=== PATIENT | male | born 2000 | race Caucasian/White ===

== ENCOUNTER 2019-03-14 17:21 | Emergency (ER) | payer BC ==
[~2019-03-14] VITALS: Ht 177.8 cm; Wt 80.5 kg
[2019-03-14] MEDS ORDERED: IV NORMAL SALINE 1,000ML 1,000 ML IV SCH (18:04)
--- NOTE | 2019-03-14 18:08 | PHYS DOC ---
Past History Past Medical History: No Pertinent History Past Surgical History: No Surgical History Smoking: Quit Greater Than 1 Year Alcohol Use: Rarely Drug Use: None Adult General Chief Complaint Chief Complaint: CHEST PAIN HPI HPI Patient is a 19-year-old male presents with chest discomfort and difficulty breathing and cough. This is been going on intermittently for "a while" but became worse over the past 90 minutes. Nonproductive cough. No fever. No travel. No worsening with change of position or exertion. Patient reports that his chest discomfort is sharp in nature. No radiation. No nausea or vomiting. No diaphoresis. Worse with deep breaths. There has been no leg swelling. Symptoms are moderate in intensity.[] Review of Systems Review of Systems Constitutional: Denies fever or chills [] Eyes: Denies change in visual acuity, redness, or eye pain [] HENT: Denies nasal congestion or sore throat [] Respiratory: Denies cough or shortness of breath [] Cardiovascular: No additional information not addressed in HPI [] GI: Denies abdominal pain, nausea, vomiting, bloody stools or diarrhea [] : Denies dysuria or hematuria [] Musculoskeletal: Denies back pain or joint pain [] Integument: Denies rash or skin lesions [] Neurologic: Denies headache, focal weakness or sensory changes [] Endocrine: Denies polyuria or polydipsia [] All other systems were reviewed and found to be within normal limits, except as documented in this note. Physical Exam Physical Exam Constitutional: Well developed, well nourished, no acute distress, non-toxic appearance. [] HENT: Normocephalic, atraumatic, bilateral external ears normal, oropharynx moist, no oral exudates, nose normal. [] Eyes: PERRLA, EOMI, conjunctiva normal, no discharge. [] Neck: Normal range of motion, no tenderness, supple, no stridor. [] Cardiovascular:Heart rate regular rhythm, no murmur [] Lungs & Thorax: Bilateral breath sounds clear to auscultation [] Abdomen: Bowel sounds normal, soft, no tenderness, no masses, no pulsatile masses. [] Skin: Warm, dry, no erythema, no rash. [] Back: No tenderness, no CVA tenderness. [] Extremities: No tenderness, no cyanosis, no clubbing, ROM intact, no edema. [] Neurologic: Alert and oriented X 3, normal motor function, normal sensory function, no focal deficits noted. [] Psychologic: Affect normal, judgement normal, mood normal. [] Current Patient Data Vital Signs Vital Signs Date Time Temp Pulse Resp B/P (MAP) Pulse Ox O2 Delivery O2 Flow Rate FiO2 03/14/19 17:32 98.2 80 16 99 Room Air EKG EKG EKG shows a sinus rhythm at 81 bpm, normal axis, normal QTC at 386 ms, incomplete right bundle branch block. No ST elevations. Interpreted at 1809[] Radiology/Procedures Radiology/Procedures PROCEDURE: CHEST PA & LATERAL Two-view chest dated 03/14/2019. No comparison available. Clinical data indication: Chest pain. FINDINGS: PA and lateral views obtained. Heart and mediastinal contours within normal limits. Lungs are somewhat hyperinflated but otherwise clear. No consolidation or pleural effusion. No pneumothorax. IMPRESSION:. No acute radiographic abnormality. [] Course & Med Decision Making Course & Med Decision Making Pertinent Labs and Imaging studies reviewed. (See chart for details) ED course: Patient arrived, was placed in bed, and tolerated exam well. He was given a breathing treatment which improved his cough, and his heart rate improved after the breathing treatment. He was feeling better afterwards. There was no significant change in breath sounds after the breathing treatment. He was transported to and from radiology with any complications. After the return of lab and imaging findings, these were discussed with the patient and his family voiced understanding. All questions were answered. Patient was discharged in improved condition. Danii decision making: Patient appears to have a bronchitis type of picture. There is no evidence of an acute coronary syndrome, pneumonia, pneumothorax, pulmonary embolism, dissecting thoracic aortic aneurysm, nor esophageal rupture. No evidence of hypoxia.[] Dragon Disclaimer Dragon Disclaimer This electronic medical record was generated, in whole or in part, using a voice recognition dictation system. Departure Departure: Impression: Primary Impression: Acute bronchitis Disposition: 01 HOME, SELF-CARE Condition: IMPROVED Referrals: PCPANTOLIN (PCP) Patient Instructions: Acute Bronchitis Additional Instructions: Follow-up with your regular doctor in 2 days. If you do not have regular doctor list of local clinics will be provided. Drink plenty of fluids. Take the medication as prescribed. Return to the ER if worsening chest discomfort, difficulty breathing, or any other concerns. Scripts D-Methorphan Hb/Prometh Hcl (PROMETHAZINE-DM SYRUP) 118 Ml Syrup 5 ML PO PRN Q4HRS for CONGESTION, #120 ML Prov: ANGELA ADAMS DO 03/14/19 Meloxicam (MELOXICAM) 7.5 Mg Tablet 7.5 MG PO DAILY for PAIN, #20 TAB Prov: ANGELA ADAMS DO 03/14/19 Albuterol Sulfate (VENTOLIN HFA INHALER) 18 Gm Hfa.aer.ad 2 PUFF IH PRN Q4HRS PRN for COUGH, #1 INHALER 0 Refills Prov: ANGELA ADAMS DO 03/14/19 Problem Qualifiers Primary Impression: Acute bronchitis Bronchitis organism: unspecified organism Qualified Codes: J20.9 - Acute b ronchitis, unspecified ANGELA ADAMS DO Mar 14, 2019 18:08
--- NOTE | 2019-03-14 18:11 | EKG ---
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
[2019-03-14] MEDS ORDERED: KETOROLAC 15 MG/ML VIAL. IV ONE (18:15)
[2019-03-14] MEDS ORDERED: IPRATRPIUM/ALBUTEROL 0.5/2.5MG 3 ML NEBU. NEB ONE (18:15)
--- NOTE | 2019-03-14 18:23 | RAD ---
Two-view chest dated 03/14/2019. No comparison available. Clinical data indication: Chest pain. FINDINGS: PA and lateral views obtained. Heart and mediastinal contours within normal limits. Lungs are somewhat hyperinflated but otherwise clear. No consolidation or pleural effusion. No pneumothorax. IMPRESSION:. No acute radiographic abnormality. Electronically signed by: Cj Mancini MD (03/14/2019 6:20 PM) [facility]
[2019-03-14 18:55] LABS: BASO % 0 % (0-3); EOS % 0 % (0-3); HEMATOCRIT 46.6 % (39.0-53.0); HEMOGLOBIN 15.4 g/dL (13.0-17.5); LYMPH # 2.1 x10^3/uL (1.0-4.8); LYMPH % 21 % (24-48); MEAN CORPUSCULAR HEMOGLOBIN 32 pg (25-35); MEAN CORPUSCULAR HGB CONC 33 g/dL (31-37); MEAN CORPUSCULAR VOLUME 96 fL (79-100); MONO # 0.5 x10^3/uL (0.0-1.1); MONO % 5 % (0-9); NEUT # 7.1 x10^3uL (1.8-7.7); NEUT % 73 % (31-73); PLATELET COUNT 248 x10^3/uL (140-400); RED BLOOD COUNT 4.86 x10^6/uL (4.30-5.70); RED CELL DISTRIBUTION WIDTH 12.9 % (11.5-14.5); WHITE BLOOD COUNT 9.8 x10^3/uL (4.0-11.0)
[2019-03-14] MEDS ORDERED: IPRATRPIUM/ALBUTEROL 0.5/2.5MG 3 ML NEBU. ONE (18:57)
[2019-03-14 19:19] LABS: ALBUMIN 4.5 g/dL (3.4-5.0); ALBUMIN/GLOBULIN RATIO 1.2 (1.0-1.7); CALCIUM 9.3 mg/dL (8.5-10.1); GFR 94.3; MAGNESIUM 2.1 mg/dL (1.8-2.4); POTASSIUM 3.8 mmol/L (3.5-5.1); TOTAL BILIRUBIN 0.6 mg/dL (0.2-1.0); TOTAL PROTEIN 8.2 g/dL (6.4-8.2)
[2019-03-14] MEDS ORDERED: PROM118S9 PO (19:33)
[2019-03-14] MEDS ORDERED: ALBU2.5V8 IH (19:33)
[2019-03-14] MEDS ORDERED: MELO7.5T29 PO (19:33)
[2019-03-14 19:40] VITALS: BP 126/74
== END 2019-03-14 19:40 | disposition home or self-care (01) ==
LOC: ER 17:21
DX: J20.9 Acute bronchitis, unspecified (principal); Z87.891 Personal history of nicotine dependence
CPT/HCPCS: 36415; 71046; 80053; 83735; 83880; 84484; 85025; 85379; 93005; 94640; 99285; J7620

== ENCOUNTER 2019-06-05 07:38 | Emergency (ER) | payer SELFPAY ==
[~2019-06-05] VITALS: Ht 177.8 cm; Wt 180.0 kg
[~2019-06-05 07:38] MED LIST: ALBU2.5V8 IH; MELO7.5T29 PO; PROM118S9 PO
[2019-06-05 07:52] VITALS: BP 113/77
--- NOTE | 2019-06-05 08:06 | PHYS DOC ---
Past History Past Medical History: No Pertinent History Past Surgical History: No Surgical History Smoking: Quit Greater Than 1 Year Alcohol Use: Rarely Drug Use: None Adult General Chief Complaint Chief Complaint: FEVER HPI HPI Patient is a 19-year-old male who presents to the emergency department for evaluation. He states that since Sunday night, he has had myalgias, nasal congestion, a nonproductive cough, as well as a sensation of his years being stopped up. He has had low-grade fevers, but has not taken any antipyretics in the past 36 hours for his symptoms. He denies any shortness of breath, vision changes, numbness, or weakness. He admits to a mild headache. He has not had any nausea vomiting or diarrhea. There are no alleviating or exacerbating factors to his symptoms. He denies a sore throat. Review of Systems Review of Systems Constitutional: Denies fever or chills [] Eyes: Denies change in visual acuity, redness, or eye pain [] HENT: Denies otalgia or sore throat [] Respiratory: Denies shortness of breath [] Cardiovascular: The patient denies any shortness of breath, chest pain, palpitations, or orthopnea [] GI: Denies abdominal pain, nausea, vomiting, bloody stools or diarrhea [] : Denies dysuria or hematuria [] Musculoskeletal: Denies back pain or joint pain. Reports myalgias. [] Integument: Denies rash or skin lesions [] Neurologic: Denies focal weakness or sensory changes [] Endocrine: Denies polyuria or polydipsia [] All other systems were reviewed and found to be within normal limits, except as documented in this note. Physical Exam Physical Exam PHYSICAL EXAM: CONSTITUTIONAL: Well developed, well nourished, well-appearing, nontoxic- appearing HEAD: normocephalic, atraumatic EENT: PERRL, EOMI. Conjunctivae normal color, sclerae non-icteric; moist mucous membranes. Tympanic membranes are normal bilaterally. The oropharynx is nonerythematous. NECK: Supple, non-tender; no meningismus. LUNGS: Lungs CTA, breathing even and unlabored. Normal air movement. HEART: Regular rate and rhythm, no murmur CHEST: No deformity; non-tender ABDOMEN: The abdomen is soft, and non-tender, no masses or bruits. EXTREM: Normal ROM; no deformity, no calf tenderness. Normal pulses palpable in all extremities. There is no pedal edema. SKIN: No rash; no diaphoresis NEURO: Alert; normal speech and cognition; CN's grossly intact; strength grossly intact without focal deficit. BACK: No CVA TTP. EKG EKG [] Radiology/Procedures Radiology/Procedures [] Course & Med Decision Making Course & Med Decision Making Influenza B-positive. Patient remains stable. I discussed test results, the need for close follow-up, and return precautions. Dragon Disclaimer Dragon Disclaimer This electronic medical record was generated, in whole or in part, using a voice recognition dictation system. Departure Departure: Impression: Primary Impression: Influenza B Disposition: 01 HOME, SELF-CARE Condition: STABLE Patient Instructions: Influenza, Adult Scripts Oseltamivir Phosphate (TAMIFLU) 75 Mg Capsule 1 CAP PO BID for -, #10 CAP Prov: ADALI ALLEN MD 06/05/19 ADALI ALLEN MD Jun 05, 2019 08:06
[2019-06-05] MEDS ORDERED: ACETAMINOPHEN 500 MG TABLET PO ONE (08:15)
[2019-06-05 08:37] LABS: INFLUENZA A PATIENT NEGATIVE (NEGATIVE); INFLUENZA B PATIENT POSITIVE (NEGATIVE)
[2019-06-05] MEDS ORDERED: OSEL75CA PO (09:08)
== END 2019-06-05 09:15 | disposition home or self-care (01) ==
LOC: ER 07:38
DX: J10.1 Influenza due to other identified influenza virus with other respiratory manifestations (principal); Z87.891 Personal history of nicotine dependence
CPT/HCPCS: 87804; 99284

== ENCOUNTER 2019-10-29 22:41 | Emergency (ER) | payer OTHER ==
[~2019-10-29] VITALS: Ht 180.3 cm; Wt 100.0 kg
[~2019-10-29 22:41] MED LIST changes: +OSEL75CA PO; +PROM118S10 PO; -PROM118S9 PO
[2019-10-29 22:45] VITALS: BP 142/79
[2019-10-29] MEDS ORDERED: ONDA4TAB12 PO (23:07)
--- NOTE | 2019-10-29 23:07 | PHYS DOC ---
Past History Past Medical History: Other Additional Past Medical Histor: kidney failure Past Surgical History: Other Additional Past Surgical Histo: EYE, CYST REMOVED FROM HIP Smoking: Quit Greater Than 1 Year Alcohol Use: Rarely Drug Use: None General Adult EDM: Chief Complaint: NAUSEA/VOMITING/DIARRHEA HPI: HPI: Patient is a [age] year old [sex] who presents with [] Review of Systems: Review of Systems: Constitutional: Denies fever or chills Eyes: Denies redness or eye pain HENT: Denies nasal congestion or sore throat Respiratory: Denies cough or shortness of breath Cardiovascular: Denies chest pain or palpitations GI: Denies abdominal pain, nausea, or vomiting : Denies dysuria or hematuria Musculoskeletal: Denies back pain or joint pain Integument: Denies rash or skin lesions Neurologic: Denies headache, focal weakness or sensory changes Complete systems were reviewed and found to be within normal limits, except as documented in this note. Allergies: Allergies: Allergies Coded Allergies Type Severity Reaction Last Updated Verified No Known Drug Allergies 06/05/19 No Physical Exam: PE: Constitutional: Well developed, well nourished, no acute distress, non-toxic appearance HENT: Normocephalic, atraumatic, oropharynx moist Eyes: PERRL, EOMI, conjunctiva normal, no discharge Neck: Normal range of motion, no tenderness, supple Cardiovascular: Heart rate normal, regular rhythm Lungs & Thorax: Bilateral breath sounds clear to auscultation, no wheezing Abdomen: Soft, no tenderness Skin: Warm, dry, no erythema, no rash Back: No tenderness, no CVA tenderness Extremities: No tenderness, ROM intact, no edema Neurologic: Alert and oriented X 3, normal motor function, normal sensory function, no focal deficits noted Psychologic: Affect normal, judgment normal Current Patient Data: Vital Signs: Vital Signs Date Time Temp Pulse Resp B/P (MAP) Pulse Ox O2 Delivery O2 Flow Rate FiO2 10/29/19 22:45 97.9 77 18 142/79 (100) 98 Room Air EKG: EKG: [] Radiology/Procedures: Radiology/Procedures: [] Course & Med Decision Making: Course & Med Decision Making Pertinent Imaging studies reviewed. (See chart for details) Patient stable for discharge with outpatient follow-up with PCP. Discussed findings and plan with patient, who acknowledges understanding and agreement. Ami Disclaimer: Ami Disclaimer: This electronic medical record was generated, in whole or in part, using a voice recognition dictation system. Departure Departure: Impression: Primary Impression: Nausea Disposition: 01 HOME/RESIDENCE PRIOR TO ADM Condition: STABLE Referrals: PCP,NO (PCP) Patient Instructions: Clear Liquid Diet, [id number], Nausea, Adult, Eyqy-rh-Yalm Scripts Ondansetron (ONDANSETRON ODT) 4 Mg Tab.rapdis 1 TAB PO PRN Q6-8HRS PRN for NAUSEA, #16 TAB Prov: ASHLEY LYNCH DO 10/29/19 Justification of Admission: Justification of Admission: Justification of Admission Dx: N/A ASHLEY LYNCH DO Oct 29, 2019 23:07
[2019-10-29] MEDS ORDERED: ONDANSETRON ODT 4 MG TAB.RAPDIS PO ONE (23:15)
[2019-10-29] MEDS ORDERED: ONDANSETRON ODT 4 MG TAB.RAPDIS ONE (23:23)
== END 2019-10-29 23:25 | disposition home or self-care (01) ==
LOC: ER 22:41
DX: R11.0 Nausea (principal); Z87.891 Personal history of nicotine dependence
CPT/HCPCS: 99283; Q0162

== ENCOUNTER 2020-02-21 22:25 | Emergency (ER) | payer BC, OTHER ==
[~2020-02-21] VITALS: Ht 180.3 cm; Wt 92.0 kg
[~2020-02-21 22:25] MED LIST changes: +ONDA4TAB12 PO
[2020-02-21 22:30] VITALS: BP 115/79
[2020-02-21] MEDS ORDERED: TRIA15CR50 TP (23:17)
--- NOTE | 2020-02-21 23:17 | PHYS DOC ---
Past History Past Medical History: Renal Failure, Other Additional Past Medical Histor: kidney failure -age 13-16; cyst on rt hip Past Surgical History: Other Additional Past Surgical Histo: EYE, CYST REMOVED FROM HIP Smoking: Quit Greater Than 1 Year Alcohol Use: Occasionally Drug Use: None Social History Narrative: used to smoke marijuana but has not for 4-5 yrs General Adult EDM: Chief Complaint: SKIN RASH/ABSCESS HPI: HPI: 20-year-old male presents with bilateral palmar rash. He has had off-and-on problems with this for couple months. Over the last few days it is gotten worse and been persistent. It is intensely pruritic. There are some mild erythematous areas mostly on the palms with a couple scattered dots on the wrist. 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 He does not have any known allergies. He has tried antifungal cream at home without relief. He has not tried any steroids. He does not have a family doctor at this time. Review of Systems: Review of Systems: Constitutional: Denies fever or chills Eyes: Denies change in visual acuity HENT: Denies nasal congestion or sore throat Respiratory: Denies cough or shortness of breath Cardiovascular: Denies chest pain or edema GI: Denies abdominal pain, nausea, vomiting, bloody stools or diarrhea : Denies dysuria Musculoskeletal: Denies back pain or joint pain Integument: Rash of hands Neurologic: Denies headache, focal weakness or sensory changes Endocrine: Denies polyuria or polydipsia Lymphatic: Denies swollen glands Psychiatric: Denies depression or anxiety Heart Score: Risk Factors: Risk Factors: DM, Current or recent (<one month) smoker, HTN, HLP, family history of CAD, obesity. Risk Scores: Score 0 - 3: 2.5% MACE over next 6 weeks - Discharge Home Score 4 - 6: 20.3% MACE over next 6 weeks - Admit for Clinical Observation Score 7 - 10: 72.7% MACE over next 6 weeks - Early Invasive Strategies Allergies: Allergies: Allergies Coded Allergies Type Severity Reaction Last Updated Verified No Known Drug Allergies 02/21/20 No Physical Exam: PE: Constitutional: Well developed, well nourished, no acute distress, non-toxic appearance. [] HENT: Normocephalic, atraumatic, bilateral external ears normal, oropharynx moist, no oral exudates, nose normal. [] Eyes: PERRLA, EOMI, conjunctiva normal, no discharge. [] Neck: Normal range of motion, no tenderness, supple, no stridor. [] Cardiovascular:Heart rate regular rhythm, no murmur [] Lungs & Thorax: Bilateral breath sounds clear to auscultation [] Abdomen: Bowel sounds normal, soft, no tenderness, no masses, no pulsatile masses. [] Skin: Mildly erythematous patches on the bilateral palms with scattered papules on the bilateral wrists. [] Back: No tenderness, no CVA tenderness. [] Extremities: No tenderness, no cyanosis, no clubbing, ROM intact, no edema. [] Neurologic: Alert and oriented X 3, normal motor function, normal sensory function, no focal deficits noted. [] Psychologic: Affect normal, judgement normal, mood normal. [] Current Patient Data: Vital Signs: Vital Signs Date Time Temp Pulse Resp B/P (MAP) Pulse Ox O2 Delivery O2 Flow Rate FiO2 02/21/20 22:30 98.1 71 16 115/79 (91) 98 Room Air EKG: EKG: [] Radiology/Procedures: Radiology/Procedures: [] Course & Med Decision Making: Course & Med Decision Making Pertinent Labs and Imaging studies reviewed. (See chart for details) Not sure what is causing the patient's rash. He could be allergic to latex or the powder and then powdered gloves. He uses all different types of bras where he works. He has tried an antifungal without relief so that seems unlikely. I will try triamcinolone cream at home. I have also encouraged him to just use nitrile based close and see if his condition improves. He will establish with a primary care physician. He is stable for discharge at this time. [] Dragon Disclaimer: Dragyudi Disclaimer: This electronic medical record was generated, in whole or in part, using a voice recognition dictation system. Departure Departure: Impression: Primary Impression: Rash of both hands Disposition: 01 DC HOME SELF CARE/HOMELESS Condition: STABLE Referrals: PCP,NO (PCP) Patient Instructions: Rash, Drip-gr-Paye Scripts Triamcinolone Acetonide (TRIAMCINOLONE ACETONIDE 0.5% CREAM) 15 Gm Cream..g. 1 MAUREEN TP BID for rash for 7 Days, #30 GM Prov: MARKY FIELD DO 02/21/20 MARKY FIELD DO Feb 21, 2020 23:17
== END 2020-02-21 23:26 | disposition home or self-care (01) ==
LOC: ER 22:25
DX: R21 Rash and other nonspecific skin eruption (principal); L29.9 Pruritus, unspecified; L53.8 Other specified erythematous conditions; N19 Unspecified kidney failure; Z87.891 Personal history of nicotine dependence
CPT/HCPCS: 99283

== ENCOUNTER 2020-02-28 16:42 | Emergency (ER) | payer BC ==
[~2020-02-28] VITALS: Ht 180.3 cm; Wt 95.5 kg
[~2020-02-28 16:42] MED LIST changes: +TRIA15CR50 TP
--- NOTE | 2020-02-28 17:18 | PHYS DOC ---
Past History Past Medical History: Renal Failure, Other Additional Past Medical Histor: kidney failure -age [age]; cyst on rt hip Past Surgical History: Other Additional Past Surgical Histo: EYE, CYST REMOVED FROM HIP Smoking: Quit Greater Than 1 Year Alcohol Use: Occasionally Drug Use: None Adult General Chief Complaint Chief Complaint: NAUSEA/VOMITING/DIARRHEA HPI HPI Patient is a healthy 20-year-old male who presents needing COVID-19 swab. Patient reports working at local [employer] [facility] [employer] that has multiple known COVID-19 contacts. 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 Patient reports x48 hours of generalized URI-like symptoms, nausea with x2 episodes of nonbloody nonbilious vomit today. Patient brought daughter in for evaluation to our ER yesterday. Today, patient did not feel well prior to work and so, patient was advised from his work to seek evaluation at our ER and received COVID-19 swab. He has been afebrile, vaccines are up-to-date Review of Systems Review of Systems Fourteen body systems of review of systems have been reviewed. See HPI for pertinent positives and negative responses, other gonzalez all other systems are negative, non-pertinent or non-contributory Allergies Allergies Allergies Coded Allergies Type Severity Reaction Last Updated Verified No Known Drug Allergies 02/21/20 No Physical Exam Physical Exam Constitutional: Well developed, well nourished, no acute distress, non-toxic appearance. HENT: Normocephalic, atraumatic, bilateral external ears normal, oropharynx moist, no oral exudates, nose normal. Eyes: PERRLA, EOMI, conjunctiva normal, no discharge. Neck: Normal range of motion, no tenderness, supple, no stridor. Cardiovascular: Heart rate regular, sinus rhythm, no murmurs rubs or gallops Lungs & Thorax: Bilateral breath sounds clear to auscultation Abdomen: Bowel sounds normal, soft, no tenderness, no masses, no pulsatile masses. Nonsurgical abdomen, no peritoneal signs Skin: Warm, dry, no erythema, no rash. Back: No tenderness, no CVA tenderness. Extremities: No tenderness, no cyanosis, no clubbing, ROM intact, no edema. Neurologic: Alert and oriented X 3, grossly normal motor & sensory function, no focal deficits noted. Psychologic: Affect normal, judgement normal, mood normal. Current Patient Data Vital Signs Vital Signs Date Time Temp Pulse Resp B/P (MAP) Pulse Ox O2 Delivery O2 Flow Rate FiO2 02/28/20 17:37 97.8 69 18 125/90 (102) 98 EKG EKG [] Radiology/Procedures Radiology/Procedures [] Heart Score Risk Factors: Risk Factors: DM, Current or recent (<one month) smoker, HTN, HLP, family history of CAD, obesity. Risk Scores: Risk Factors: DM, Current or recent (<one month) smoker, HTN, HLP, family history of CAD, obesity. Course & Med Decision Making Course & Med Decision Making Pertinent Labs and Imaging studies reviewed. (See chart for details) Discussed most likely diagnosis of nausea and vomit versus COVID-19 versus other Patient swabbed for COVID-19 per patient and employer request I discussed utility of lab work and other work-up modalities in ER setting but g iven that patient is well-appearing, hemodynamically stable and tolerating p.o. intake, I feel this is inappropriate at present. Patient agreed with this as well I did disclose this might be an acute presentation more concerning pathology and such, close return precautions were discussed All questions and concerns addressed prior to ER departure in stable condition with continued supportive care advised, self quarantine until COVID-19 test resumes, and eventual outpatient PCP follow-up Ami Disclaimer Ami Disclaimer This electronic medical record was generated, in whole or in part, using a voice recognition dictation system. Departure Departure: Impression: Primary Impression: Person under investigation for COVID-19 Additional Impression: Nausea & vomiting Disposition: 01 DC HOME SELF CARE/HOMELESS Condition: STABLE Referrals: PCP,NO (PCP) Additional Instructions: As discussed, please use the attached sheet to identify a primary care physician of your liking, call them and schedule an appointment in upcoming +14 days after quarantine or negative Covid test Please utilize the instructions below regarding COVID-19 self-care instructions. If you have any concerning signs or symptoms at present prior to outpatient follow-up please do not hesitate to come back for repeat examination Is a pleasure to take care of you today and I wish you speedy recovery! You were evaluated in the Emergency Department today for a cough. Your evaluation suggests a viral infection such as Coronavirus. It is important that you continue to self isolate and practice good hygiene at home. Please follow up with your primary care physician as discussed. Return to the Emergency Department if you experience worsening cough, fever, shortness of breath, recurrent vomiting, lethargy, or any other concerning symptoms. Thank you for choosing us for your care. Home Care Instructions for Patients with Mild Respiratory Infection Most people with respiratory infections like colds, the flu, and Coronavirus Disease (COVID-19) will have mild illness and can get better with appropriate home care and without the need to see a provider. People who are elderly, , or have a weak immune system, or other medical problem are at higher risk of more serious illness or complications. It is recommended that they carefully monitor their symptoms closely and seek medical care early if their symptoms get worse. Treatment There is no specific treatment for most viruses including those that that cause the common cold and those that cause COVID-19. Sometimes there is treatment for the viruses that cause influenza if given early. Antibiotics treat infections caused by bacteria, but they do not work against viruses.Most people recover on their own from these viruses, including COVID-19. Here are steps that you can take to help you get better: Rest Drink plenty of fluids Take cnle-rrh-qzxwbih cold and flu medications to reduce fever and pain. Follow the instructions on the package, unless your doctor gave you instructions. Note that these medicines do not ``cure the illness and therefore do not stop you from spreading germs. Children should not be given medication that contains aspirin (acetylsalicylic acid) because it can cause a rare but serious illness called Matt syndrome. Medicines without aspirin include acetaminophen (Tylenol) and ibuprofen (Advil, Motrin). Children younger than age 2 should not be given any pqpa-kds-eoouaqy cold medications without first speaking with a doctor.Seeking Medical Care You should seek medical care if you are not getting better within a week, or if your symptoms get worse. If you are elderly, , have a weak immune system, or other medical problems, call your doctor right away. It is best to call ahead of time to discuss your symptoms, if possible. This may allow you to receive the advice you need by phone. By avoiding a visit to a healthcare facility, you protect yourself from getting a new infection and protect others from catching an infection from you. If you do visit a healthcare facility, put on a mask to protect other patients and staff. It is recommended that you seek medical care for serious symptoms, such as: People with potentially life-threatening symptoms should call 911. If possible, put on a facemask before emergency medical services arrive.PROTECTING OTHERS Follow the steps below to help prevent the disease from spreading to people in your home and community.Stay home when you are sick Stay home - do not go to work, school, or public areas. Stay home for at least 24 hours after your symptoms have gone away without the use of fever-reducing medicines. If you must leave home while you are sick, try to avoid using public transportation, ride-shares, and taxis. Wear a mask if possible. Separate yourself from other people and animals in your home Stay in a specific room and away from other people in your home as much as possible. Use a separate bathroom, if available. Try to stay at least 6 feet from others. Do not handle pets or other animals while you are sick. Cover your coughs and sneezes Cover your mouth and nose with a tissue when you cough or sneeze. Throw used tissues in a lined trash can; immediately wash your hands. Avoid sharing personal household items Do not share dishes, drinking glasses, cups, eating utensils, towels, or bedding with other people or pets in your home. Wash them thoroughly with soap and water after use. Clean your hands often Wash your hands often with soap and water for at least 20 seconds. If soap and water are not available, clean your hands with an alcohol-based hand baker second that contains at least 60% alcohol, covering all surfaces of your hands and rubbing them together until they feel dry. Use soap and water if your hands are visibly dirty. Clean all ``high-touch surfaces every day High touch surfaces include counters, tabletops, doorknobs, bathroom fixtures, toilets, phones, keyboards, tablets, and bedside tables. Also, clean any surfaces that may have body fluids on them. Use a household cleaning spray or wipe, according to the product label instructions. COVID-19 (Novel Coronavirus) FAQs for Inquiring Patients What do you do if you are worried that you have been exposed to COVID-19 but are without any symptoms? If you develop symptoms that may indicate an infection, contact your physician. These include fever, cough, and shortness of breath. Testing is not available for asymptomatic individuals, regardless of travel history. To reduce the chance of getting sick use general infection prevention measures such as hand washing, covering your mouth and nose when you cough or sneeze and discarding any tissues carefully, and staying home when you are sick.Can exceptions be made for patients who are really worried and want to be tested? Presently testing is only available through the [facility] Department of [facility] Health and Centers for Disease Control and Prevention. Only patients who meet the updated COVID-19 PUI definition may be tested. We do not control or set the PUI definition or evaluation criteria. We are unable to provide testing to patients who do not meet the strict criteria. Should patients cancel or postpone an upcoming trip? The decision about travel is personal and should be made in the context of a persons underlying health conditions, reason for travel and necessity of travel. Travel insurance generally does not cover cancellations due to concerns of infectious disease outbreaks. The Center for Disease Control has a section on travel notices. Situations are changing frequently and you should monitor the site for updates. Should situations change rapidly in a foreign country while they are traveling, you could be subject to quarantine or restrictions upon return to the [facility]. It is best to have a plan on how to return urgently if needed during a trip abroad. Because of how air circulates and is filtered on airplanes, most viruses do not spread easily on airplanes. CDC does not recommend use of facemasks during air travel.What other general precautions are advised? Patients should be instructed to: Avoid close contact with people who are sick. Avoid touching your eyes, nose and mouth. Stay home from work or school when they are sick. If you have a fever, you should remain home until 24 hours after fever resolves. Clean and disinfect frequently touched objects and surfaces using a regular household cleaning spray or wipe. Sneeze/cough into their elbow, not your hand. Practice frequent hand hygiene with soap and water (at least 20 seconds) or alcohol-based hand rub. Consider avoiding crowded places or mass gatherings, especially if you are immunocompromised or have chronic lung disease. There is no evidence to support transmission of COVID-19 from goods imported from [place]. Are there any special precautions that are recommended if I am ? There is not yet any information available about the susceptibility of women to COVID-19. As a general rule, women may be more susceptible to viral respiratory infections and at risk for more severe illness. The CDC guidance for COVID-19 and has answers to questions about transmission during delivery, as well as other situations. Should food, water, or medications be stockpiled? Should people telecommute? The CDC has excellent information on this. Please visit the CDCs guidance for getting your household ready for COVID-19. What should I do if I start feeling sick at work? And what should the workplace do for anyone exposed? Anyone who is sick with a fever and cough should stay home from work until at least 24 hours after resolution of fever, regardless of concerns for COVID-19. It is still influenza (flu) season and influenza remains far more common. Problem Qualifiers REDD LINO DO Feb 28, 2020 17:18
[2020-02-28 17:37] VITALS: BP 125/90
== END 2020-02-28 17:43 | disposition home or self-care (01) ==
LOC: ER 16:42
DX: R11.2 Nausea with vomiting, unspecified (principal); Z20.828 Contact with and (suspected) exposure to other viral communicable diseases; N19 Unspecified kidney failure; Z87.891 Personal history of nicotine dependence
CPT/HCPCS: 99283; C9803; U0003

== ENCOUNTER 2020-03-12 23:09 | Emergency (ER) | payer BC ==
[~2020-03-12] VITALS: Ht 180.3 cm; Wt 95.5 kg
--- NOTE | 2020-03-12 23:15 | PHYS DOC ---
Past History Past Medical History: No Pertinent History, Renal Failure, Other Additional Past Medical Histor: kidney failure -age [age]; cyst on rt hip Past Surgical History: Other Additional Past Surgical Histo: EYE, CYST REMOVED FROM HIP Smoking: Quit Greater Than 1 Year Alcohol Use: Occasionally Drug Use: None General Adult EDM: Chief Complaint: SKIN RASH/ABSCESS HPI: HPI: ".I was here the other day...but I got this rash on my feet..and now on my hands..." Patient is a 20 year old male who presents with above hx and complaints of rash. I been using a antibiotic cream on but has not helped. Patient has somewhat atypical subcu lesions of palms and soles. Lesions do mercedes with pressure. Patient does have some areas of be suggestive as fungal type lesions. Pt. has hx of renal failure as teenage. Patient denies any history immunosuppression, no recent travel. No specific ill contacts. Patient has not been following with her primary care recently. Patient states his lesions today ears very pruritic. Patient states the antibiotic ointment he has been using has now ran out. Review of Systems: Review of Systems: Constitutional: Denies fever or chills Eyes: Denies change in visual acuity HENT: Denies nasal congestion or sore throat Respiratory: Denies cough or shortness of breath Cardiovascular: Denies chest pain or edema GI: Denies abdominal pain, nausea, vomiting, bloody stools or diarrhea : Denies dysuria Musculoskeletal: Denies back pain or joint pain Integument: Complains of palmar and plantar rash Neurologic: Denies headache, focal weakness or sensory changes Endocrine: Denies polyuria or polydipsia Lymphatic: Denies swollen glands Psychiatric: Denies depression or anxiety Family History: Family History: Noncontributory to presentation Current Medications: Current Meds: See nursing for home meds Allergies: Allergies: Allergies Coded Allergies Type Severity Reaction Last Updated Verified No Known Drug Allergies 02/21/20 No Physical Exam: PE: Constitutional: Well developed, well nourished, moderate acute distress, non- toxic appearance. [] HENT: Normocephalic, atraumatic, bilateral external ears normal, oropharynx moist, no oral exudates, nose normal. [] Eyes: PERRLA, EOMI, conjunctiva normal, no discharge. [] Neck: Normal range of motion, no tenderness, supple, no stridor. [] Cardiovascular:Heart rate regular rhythm, no murmur [] Lungs & Thorax: Bilateral breath sounds clear to auscultation [] Abdomen: Bowel sounds normal, soft, no tenderness, no masses, no pulsatile masses. [] Skin: Warm, dry, no erythema, erythemic rash that appears to be subcu in palms and soles Back: No tenderness, no CVA tenderness. [] Extremities: No tenderness, no cyanosis, no clubbing, ROM intact, no edema. [] Neurologic: Alert and oriented X 3, normal motor function, normal sensory function, no focal deficits noted. [] Psychologic: Affect normal, judgement normal, mood normal. [] EKG: EKG: [] Radiology/Procedures: Radiology/Procedures: [] Heart Score: Risk Factors: Risk Factors: DM, Current or recent (<one month) smoker, HTN, HLP, family history of CAD, obesity. Risk Scores: Score 0 - 3: 2.5% MACE over next 6 weeks - Discharge Home Score 4 - 6: 20.3% MACE over next 6 weeks - Admit for Clinical Observation Score 7 - 10: 72.7% MACE over next 6 weeks - Early Invasive Strategies Course & Med Decision Making: Course & Med Decision Making Pertinent Labs and Imaging studies reviewed. (See chart for details) Patient to use Benadryl 50 mg at 4 times a day for itching. Patient to take Keflex 500 mg 3 times a day. Patient to follow-up primary care. Patient to use antifungal ointment or cream 3 times a day on palms and soles. Patient consi mando skin biopsy if no improvement with antibiotics and antifungal treatments. Impression: 1.Rash-erythemic subcu palms and soles [] Dragon Disclaimer: Dragon Disclaimer: This electronic medical record was generated, in whole or in part, using a voice recognition dictation system. Departure Departure: Referrals: PCP,ANTOLIN (PCP) Scripts Cephalexin (KEFLEX) 500 Mg Capsule 500 MG PO TID for rash, #30 BOTTLE Prov: KRISTAL OWEN MD 03/12/20 Ami Disclaimer This chart was dictated in whole or in part using Voice Recognition software in a busy, high-work load, and often noisy Emergency Department environment. It may contain unintended and wholly unrecognized errors or omissions. KRISTAL OWEN MD Mar 12, 2020 23:15
[2020-03-12 23:24] VITALS: BP 135/80
[2020-03-12] MEDS ORDERED: cefTRIAXone IM 1 GM VIAL IM ONE (23:45)
[2020-03-12] MEDS ORDERED: methylPREDNISolone ACETATE 40 MG/ML VIAL. IM ONE (23:45)
[2020-03-12] MEDS ORDERED: CEPH-264 PO (23:52)
[2020-03-15 16:07] LABS: ANA INTERP Negative (.)
== END 2020-03-13 00:05 | disposition home or self-care (01) ==
LOC: ER 23:09
DX: R21 Rash and other nonspecific skin eruption (principal); L98.8 Other specified disorders of the skin and subcutaneous tissue; N19 Unspecified kidney failure; Z87.891 Personal history of nicotine dependence
CPT/HCPCS: 36415; 86038; 86140; 86200; 86592; 96372; 99284; J0696; J1030

== ENCOUNTER 2020-03-26 16:25 | Emergency (ER) | payer BC ==
[~2020-03-26] VITALS: Ht 180.3 cm; Wt 95.5 kg
[~2020-03-26 16:25] MED LIST changes: +CEPH-264 PO
[2020-03-26 16:33] VITALS: BP 139/76
[2020-03-26] MEDS ORDERED: TRIA15CR3 TP (17:04)
--- NOTE | 2020-03-26 17:05 | PHYS DOC ---
Past History Past Medical History: Renal Failure, Other Additional Past Medical Histor: kidney failure -age [age]; cyst on rt hip Past Surgical History: Other Additional Past Surgical Histo: EYE, CYST REMOVED FROM HIP Smoking: Quit Greater Than 1 Year Alcohol Use: Occasionally Drug Use: None General Adult EDM: Chief Complaint: SKIN RASH/ABSCESS HPI: HPI: Patient is a 20-year-old male who presents to the emergency department with reports of a rash between his legs, to his chest, bilateral hands for several weeks. Patient reports he has been seen by his primary care doctor who prescribed him triamcinolone cream and Keflex. Patient states he has been taking his medications but the rash continues. He denies any medical history. Patient denies any new detergents, fragrances, foods, or environmental exposures. He denies any shortness of breath, wheezing, nausea, or vomiting. He states that the rash is very itchy. He currently denies any pain. Review of Systems: Review of Systems: Complete ROS is negative unless otherwise noted in HPI. Allergies: Allergies: Allergies Coded Allergies Type Severity Reaction Last Updated Verified No Known Drug Allergies 02/21/20 No Physical Exam: PE: See Above Constitutional: Well developed, well nourished, no acute distress, non-toxic appearance. [] HENT: Normocephalic, atraumatic, bilateral external ears normal, nose normal. [] Eyes: PERRLA, EOMI, conjunctiva normal, no discharge. [] Neck: Normal range of motion, no stridor. [] Cardiovascular:Heart rate regular rhythm Lungs & Thorax: Respirations even and unlabored, no retractions, no respiratory distress Skin: Warm, dry; patches of fine, dry, scaly rash to bilateral hands, upper extremities and chest consistent with atopic dermatitis; erythemic, papular rash with some pustules noted to bilateral inner thighs, concerning for folliculitis. Extremities: No cyanosis, ROM intact, no edema. [] Neurologic: Alert and oriented X 3, no focal deficits noted. [] Psychologic: Affect normal, judgement normal, mood normal. [] Current Patient Data: Vital Signs: Vital Signs Date Time Temp Pulse Resp B/P (MAP) Pulse Ox O2 Delivery O2 Flow Rate FiO2 03/26/20 16:33 98.3 87 16 139/76 (97) 97 Room Air EKG: EKG: [] Radiology/Procedures: Radiology/Procedures: [] Heart Score: Risk Factors: Risk Factors: DM, Current or recent (<one month) smoker, HTN, HLP, family history of CAD, obesity. Risk Scores: Score 0 - 3: 2.5% MACE over next 6 weeks - Discharge Home Score 4 - 6: 20.3% MACE over next 6 weeks - Admit for Clinical Observation Score 7 - 10: 72.7% MACE over next 6 weeks - Early Invasive Strategies Course & Med Decision Making: Course & Med Decision Making Pertinent Labs and Imaging studies reviewed. (See chart for details) [] Dragon Disclaimer: Dragon Disclaimer: This electronic medical record was generated, in whole or in part, using a voice recognition dictation system. Departure Departure: Impression: Primary Impression: Atopic dermatitis Qualified Codes: L20.9 - Atopic dermatitis, unspecified Additional Impression: Folliculitis Disposition: 01 DC HOME SELF CARE/HOMELESS Condition: STABLE Referrals: PCP,NO (PCP) Patient Instructions: Eczema, Folliculitis Additional Instructions: Fill the prescription and use it as directed. Recommend that you purchase some Cetaphil moisturizing cream to apply to your entire body twice a day. Limit hot showers as discussed, I recommend that you lightly towel off after a shower and mainly air dry. Continue taking the Keflex as prescribed by the previous provider. I recommend that you follow-up with a quality control lab technician for further evaluation of this ongoing problem. Return to the ER if your symptoms worsen or you develop a fever. Scripts Triamcinolone Acetonide (TRIAMCINOLONE ACETONIDE 0.1% CREAM) 15 Gm Cream..g. 1 MAUREEN TP BID for rash for 10 Days, #2 TUBE 0 Refills Prov: GARO CUELLAR THERMAL CUTTER HELPER 03/26/20 GARO CUELLAR THERMAL CUTTER HELPER Mar 26, 2020 17:04
== END 2020-03-26 17:27 | disposition home or self-care (01) ==
LOC: ER 16:25
DX: L20.9 Atopic dermatitis, unspecified (principal); L73.9 Follicular disorder, unspecified; N19 Unspecified kidney failure; Z87.891 Personal history of nicotine dependence
CPT/HCPCS: 99283

== ENCOUNTER 2020-04-06 18:13 | Emergency (ER) | payer BC ==
[~2020-04-06] VITALS: Ht 180.3 cm; Wt 95.5 kg
[2020-04-06 18:13] VITALS: BP 143/109
[~2020-04-06 18:13] MED LIST changes: +TRIA15CR3 TP
--- NOTE | 2020-04-06 20:37 | RAD ---
Exam: Pelvis with bilateral hips INDICATION: Left hip pain, TECHNIQUE: Frontal view of the pelvis with bilateral frog-leg lateral views of the left hip Comparisons: None FINDINGS: Heterogenous sclerotic area within the left iliac bone. Bone mineralization is otherwise normal. No acute or healed fractures. Soft tissues are unremarkable. 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 Recommend correlation with nonemergent MRI of the pelvis without and with contrast to exclude other etiologies. Electronically signed by: Monica Conte MD (04/06/2020 8:34 PM) JEISON
[2020-04-06] MEDS ORDERED: HYDR-2155 PO (20:59)
--- NOTE | 2020-04-06 20:59 | PHYS DOC ---
Past History Past Medical History: Renal Failure, Other Additional Past Medical Histor: kidney failure -age [age]; cyst on rt hip Past Surgical History: Other Additional Past Surgical Histo: EYE, CYST REMOVED FROM HIP Smoking: Quit Greater Than 1 Year Alcohol Use: Occasionally Drug Use: None General Adult EDM: Chief Complaint: HIP PAIN HPI: HPI: Patient is a 20-year-old male who presents to the emergency department with complaints of a grinding sensation in his left hip for several weeks weeks, and pain and popping in his right hip that began today. Patient denies any known injury. He states he did have to lift a heavy inmate at work last night. He denies any back pain, saddle anesthesia, or loss of bowel/bladder control. 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 He denies any recent weight loss, fatigue, unexplained bruising, fever, cough, or shortness of breath. He currently rates his pain a 7 out of 10 on the pain scale. Patient states he has tried taking [id number] ibuprofen with no relief in his symptoms. He reports that the pain is worse with movement. Review of Systems: Review of Systems: Complete ROS is negative unless otherwise noted in HPI. Allergies: Allergies: Allergies Coded Allergies Type Severity Reaction Last Updated Verified No Known Drug Allergies 02/21/20 No Physical Exam: PE: See Above Constitutional: Well developed, well nourished, no acute distress, non-toxic appearance. [] HENT: Normocephalic, atraumatic, bilateral external ears normal, nose normal. [] Eyes: PERRLA, EOMI, conjunctiva normal, no discharge. [] Neck: Normal range of motion, no stridor. [] Cardiovascular:Heart rate regular rhythm Lungs & Thorax: Respirations even and unlabored, no retractions, no respiratory distress Skin: Warm, dry, no erythema, no rash. [] Extremities: Bilateral hips and pelvis: Nontender to palpation, no obvious deformity, no cyanosis, ROM intact, no edema. [] Neurologic: Alert and oriented X 3, no focal deficits noted. [] Psychologic: Affect normal, judgement normal, mood normal. [] Current Patient Data: Vital Signs: Vital Signs Date Time Temp Pulse Resp B/P (MAP) Pulse Ox O2 Delivery O2 Flow Rate FiO2 04/06/20 18:13 97.7 82 18 143/109 (120) 98 Room Air EKG: EKG: [] Radiology/Procedures: Radiology/Procedures: PROCEDURE: HIP BILATERAL WITH PELVIS Exam: Pelvis with bilateral hips INDICATION: Left hip pain, TECHNIQUE: Frontal view of the pelvis with bilateral frog-leg lateral views of the left hip Comparisons: None FINDINGS: Heterogenous sclerotic area within the left iliac bone. Bone mineralization is otherwise normal. No acute or healed fractures. Soft tissues are unremarkable. 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 Recommend correlation with nonemergent MRI of the pelvis without and with contrast to exclude other etiologies.[] Heart Score: Risk Factors: Risk Factors: DM, Current or recent (<one month) smoker, HTN, HLP, family history of CAD, obesity. Risk Scores: Score 0 - 3: 2.5% MACE over next 6 weeks - Discharge Home Score 4 - 6: 20.3% MACE over next 6 weeks - Admit for Clinical Observation Score 7 - 10: 72.7% MACE over next 6 weeks - Early Invasive Strategies Course & Med Decision Making: Course & Med Decision Making Pertinent Labs and Imaging studies reviewed. (See chart for details) 2049-I spoke with Dr. Bhatt about the patient's hip and pelvis x-ray. He recommends that the patient follow-up with a orthopedic oncologist at [facility]. I will provide the patient with the phone number for medical oncology at for further evaluation. Will prescribe patient hydrocodone to take as needed for severe pain. [] Ami Disclaimer: Ami Disclaimer: This electronic medical record was generated, in whole or in part, using a voice recognition dictation system. Departure Departure: Impression: Primary Impression: Hip pain, bilateral Additional Impression: Abnormal x-ray of pelvis Disposition: 01 DC HOME SELF CARE/HOMELESS Condition: STABLE Referrals: PCP,NO (PCP) Patient Instructions: Hip Pain Additional Instructions: Fill prescription(s) and use as directed. Recommend application of ice, elevation, and rest of affected extremity. Follow-up with a medical oncologist at [facility]. You can call [phone] or [phone] to schedule an appointment. Return to the ER if your symptoms worsen. Your x-ray today revealed: FINDINGS: Heterogenous sclerotic area within the left iliac bone. Bone mineralization is otherwise normal. No acute or healed fractures. Soft tissues are unremarkable. 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 Scripts Hydrocodone Bit/Acetaminophen (HYDROCODONE-APAP 5-325 ) 1 Each Tablet 0.5-1 TAB PO PRN Q6HRS PRN for PAIN for 3 Days, #12 TAB 0 Refills Prov: GARO CUELLAR NUCLEAR MONITORING TECHNICIAN 04/06/20 GARO CUELLAR NUCLEAR MONITORING TECHNICIAN Apr 06, 2020 20:59
== END 2020-04-06 21:05 | disposition home or self-care (01) ==
LOC: ER 18:13
DX: M25.551 Pain in right hip (principal); M25.552 Pain in left hip; R93.41 Abnormal radiologic findings on diagnostic imaging of renal pelvis, ureter, or bladder; N19 Unspecified kidney failure; Z87.891 Personal history of nicotine dependence
CPT/HCPCS: 73521; 99283

== ENCOUNTER 2020-04-11 08:57 | Emergency (ER) | payer BC ==
[~2020-04-11] VITALS: Ht 180.3 cm; Wt 95.5 kg
[~2020-04-11 08:57] MED LIST changes: +HYDR-2155 PO
[2020-04-11 09:00] VITALS: BP 128/87
--- NOTE | 2020-04-11 09:18 | PHYS DOC ---
Past History Past Medical History: Renal Failure, Other Additional Past Medical Histor: kidney failure -age [age]; cyst on rt hip Past Surgical History: Other Additional Past Surgical Histo: EYE, CYST REMOVED FROM HIP Smoking: Quit Greater Than 1 Year Alcohol Use: Occasionally Drug Use: None Adult General Chief Complaint Chief Complaint: HIP PAIN HPI HPI Patient is a 20-year-old male presenting for work night. He was recently seen at our facility and found to have left hip bony abnormality on radiograph imaging. He has history of cysts on this hip that were removed at 14 years of age. He was subsequently prescribed narcotic pain medication with instructions to follow-up in outpatient setting for nonemergent MRI. He has set MRI scheduled at [facility] later this week; however, he works at local [employer] and reports his boss has been giving him a hard time and not adhering to advised physical restrictions. Patient is here today asking for work note discussing specific light duty and stair/step limit as this exacerbates his pain more than anything Review of Systems Review of Systems Fourteen body systems of review of systems have been reviewed. See HPI for pertinent positives and negative responses, other gonzalez all other systems are negative, non-pertinent or non-contributory Allergies Allergies Allergies Coded Allergies Type Severity Reaction Last Updated Verified No Known Drug Allergies 02/21/20 No Physical Exam Physical Exam Constitutional: Well developed, well nourished, no acute distress, non-toxic appearance. HENT: Normocephalic, atraumatic, bilateral external ears normal, oropharynx moist, no oral exudates, nose normal. Eyes: PERRLA, EOMI, conjunctiva normal, no discharge. Neck: Normal range of motion, no tenderness, supple, no stridor. Cardiovascular: Heart rate regular per monitor Lungs & Thorax: Bilateral chest rise without obvious respiratory distress Abdomen: Bowel sounds normal, soft, no tenderness, no masses, no pulsatile masses. Nonsurgical abdomen, no peritoneal signs Skin: Warm, dry, no erythema, no rash. Back: No tenderness, no CVA tenderness. Extremities: No cyanosis, no clubbing, no edema. Neurologic: Alert and oriented X 3, grossly normal motor & sensory function, no focal deficits noted. Psychologic: Affect normal, judgement normal, mood normal. Current Patient Data Vital Signs Vital Signs Date Time Temp Pulse Resp B/P (MAP) Pulse Ox O2 Delivery O2 Flow Rate FiO2 04/11/20 09:00 97.7 76 16 128/87 (101) 100 EKG EKG [] Radiology/Procedures Radiology/Procedures Exam: Pelvis with bilateral hips INDICATION: Left hip pain, TECHNIQUE: Frontal view of the pelvis with bilateral frog-leg lateral views of the left hip Comparisons: None FINDINGS: Heterogenous sclerotic area within the left iliac bone. Bone mineralization is otherwise normal. No acute or healed fractures. Soft tissues are unremarkable. 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 Recommend correlation with nonemergent MRI of the pelvis without and with contrast to exclude other etiologies. Electronically signed by: Monica Conte MD (04/06/2020 8:34 PM) [facility] Heart Score Risk Factors: Risk Factors: DM, Current or recent (<one month) smoker, HTN, HLP, family history of CAD, obesity. Risk Scores: Risk Factors: DM, Current or recent (<one month) smoker, HTN, HLP, family history of CAD, obesity. Course & Med Decision Making Course & Med Decision Making ABCs unremarkable Prior imaging studies confirmed bony abnormality to left hip likely causing his ongoing hip pain. He is pending MRI as recommended in outpatient setting at [facility] later this week. His pain is adequately controlled in outpatient setting. He is requesting light duty restriction at work which I feel is appropriate, I have written him a work note stating he would benefit from light duty at work with limited stair/step restriction until cleared by [facility] physician Patient was advised and educated on importance of close outpatient follow-up. I advised them to call primary care physician as soon as possible to discuss following up in outpatient setting after ER departure for repeat examination and evaluation. Strict return precautions were discussed at length with good understanding by patient who is able to restate plan and concerning signs or symptoms that should prompt immediate medical attention. All questions and concerns addressed prior to ER departure Ami Disclaimer Dragon Disclaimer This electronic medical record was generated, in whole or in part, using a voice recognition dictation system. Departure Departure: Impression: Primary Impression: Left hip pain Disposition: 01 DC HOME SELF CARE/HOMELESS Condition: STABLE Referrals: PCP,NO (PCP) Patient Instructions: Hip Exercises, Generic, SportsMed, Hip Pain Additional Instructions: As instructed prior to ER departure, please continue outpatient follow-up for your ongoing left hip issues as recommended with [facility] for nonemergent MRI Continue previously prescribed pain medications and adhere to ongoing supportive care practices such as stretching If any concerning signs or symptoms present prior to outpatient follow-up please do not hesitate to come back for repeat evaluation It was a pleasure to take care of you today and I wish you a speedy recovery! REDD LINO DO Apr 11, 2020 09:18
== END 2020-04-11 09:20 | disposition home or self-care (01) ==
LOC: ER 08:57
DX: M25.552 Pain in left hip (principal); N19 Unspecified kidney failure; Z87.891 Personal history of nicotine dependence
CPT/HCPCS: 99281

== ENCOUNTER 2021-02-25 21:27 | Emergency (ER) | payer BC, OTHER ==
[~2021-02-25] VITALS: Ht 180.3 cm; Wt 95.5 kg
[2021-02-25 21:30] VITALS: BP 128/87
--- NOTE | 2021-02-25 21:37 | PHYS DOC ---
Past History Past Medical History: Renal Failure, Other Additional Past Medical Histor: kidney failure -age [age]; cyst on rt hip Past Surgical History: Other Additional Past Surgical Histo: EYE, CYST REMOVED FROM HIP Smoking: Quit Greater Than 1 Year Alcohol Use: Occasionally Drug Use: None General Adult EDM: Chief Complaint: HIP PAIN HPI: HPI: "..I was on a ladder doing stocking.. and fell...'." Patient is a 21 year old male who presents with above hx of fall from ladder with Rt. hip pain after the fall. Pt. localizes pain in Rt. hip. Pt. does have past history of bone cyst. Patient currently works at [employer] and injury occurred approximately 6 AM this morning. No recent travel. No sick ill contacts. No history of immunosuppression. Is a work comp injury. Patient states he did inform his employer of the injury. Review of Systems: Review of Systems: Constitutional: Denies fever or chills Eyes: Denies change in visual acuity HENT: Denies nasal congestion or sore throat Respiratory: Denies cough or shortness of breath Cardiovascular: Denies chest pain or edema GI: Denies abdominal pain, nausea, vomiting, bloody stools or diarrhea : Denies dysuria Musculoskeletal: Complains of right hip pain Integument: Denies rash Neurologic: Denies headache, focal weakness or sensory changes Endocrine: Denies polyuria or polydipsia Lymphatic: Denies swollen glands Psychiatric: Denies depression or anxiety Family History: Family History: Noncontributory presentation Current Medications: Current Meds: See correction meds Allergies: Allergies: Allergies Coded Allergies Type Severity Reaction Last Updated Verified No Known Drug Allergies 02/21/20 No Physical Exam: PE: Constitutional: Well developed, well nourished, moderate acute distress, non- toxic appearance. [] HENT: Normocephalic, atraumatic, bilateral external ears normal, oropharynx moist, no oral exudates, nose normal. [] Eyes: PERRLA, EOMI, conjunctiva normal, no discharge. [] Neck: Normal range of motion, no tenderness, supple, no stridor. [] Cardiovascular:Heart rate regular rhythm, no murmur [] Lungs & Thorax: Bilateral breath sounds clear to auscultation [] Abdomen: Bowel sounds normal, soft, no tenderness, no masses, no pulsatile masses. [] Skin: Warm, dry, no erythema, no rash. [] Back: No tenderness, no CVA tenderness. [] Extremities: Right hip tenderness, no cyanosis, no clubbing, ROM intact, no edema. [] Neurologic: Alert and oriented X 3, normal motor function, normal sensory function, no focal deficits noted. [] Psychologic: Affect anxious, judgement normal, mood normal. [] EKG: EKG: [] Radiology/Procedures: Radiology/Procedures: [address] [address] IMAGING REPORT Signed PATIENT: BIANCA GOLD ACCOUNT: [id number] : 2000 LOCATION: ER AGE: 21 SEX: M EXAM STATUS: REG ER ORD. PHYSICIAN: KRISTAL OWEN MD REASON: FALL, HX LEFT HIP CYSTS PROCEDURE: CT PELVIS WO CONTRAST EXAM: CT lumbar spine without IV contrast CT pelvis without contrast CLINICAL HISTORY:Reason: FALL, HX LEFT HIP CYSTS / Spl. Instructions: / History: COMPARISON: None available. TECHNIQUE: Helical CT was performed through the lumbar spine. Axial, coronal and sagittal reformatted images were generated. CT of the pelvis was also performed without IV contrast. Axial, coronal and sagittal reformatted images were generated. PQRS compliance statement - One or more of the following individualized dose reduction techniques were utilized for this study: 1. Automated exposure control 2. Adjustment of the mA and/or kV according to patient size 3. Use of iterative reconstruction technique FINDINGS: Lumbar spine: Bilateral L5 pars defects are seen. No spondylolisthesis. Generalized disc bulge L5-S1. No acute fracture. Straightening of the normal lumbar lordosis. Pelvis: Expansile lytic or sclerotic left iliac wing lesion is likely grossly stable. IMPRESSION: 1. No acute fracture or subluxation of the lumbar spine 2. Bilateral L5 pars defects are seen, without spondylolisthesis. 3. No acute pelvic fracture. 4. Left iliac wing lytic and sclerotic lesion, without definite aggressive characteristics. Follow-up radiographs in 6-12 months is recommended to ensure stability. Electronically signed by: Hira Armas MD (02/25/2021 10:19 PM) [facility] DICTATED AND SIGNED BY: HIRA ARMAS MD DATE: 02/25/212213 CC: KRISTAL OWEN MD; PCP,NO ~[address] [address] IMAGING REPORT Signed PATIENT: BIANCA GOLD ACCOUNT: [id number] : 2000 LOCATION: ER AGE: 21 SEX: M EXAM STATUS: REG ER ORD. PHYSICIAN: KRISTAL OWEN MD REASON: pain, fall PROCEDURE: RIGHT FEMUR XRAY EXAM: AP and lateral views right femur DATE: 02/25/2021 9:36 PM INDICATION: Reason: pain, fall / Spl. Instructions: / History: . COMPARISON: No Prior FINDINGS/ IMPRESSION: No evidence of acute fracture or dislocation. Joint spaces are preserved without significant degenerative/proliferative change. Electronically signed by: Hira Armas MD (02/25/2021 10:21 PM) [facility] DICTATED AND SIGNED BY: HIRA ARMAS MD DATE: 02/25/212219 CC: KRISTAL OWEN MD; PCP,NO ~MTH0 0 [][address] [address] IMAGING REPORT Signed PATIENT: BIANCA GOLD ACCOUNT: [id number] : 2000 LOCATION: ER AGE: 21 SEX: M EXAM STATUS: REG ER ORD. PHYSICIAN: KRISTAL OWEN MD REASON: fall from ladder, PROCEDURE: CT LUMBAR SPINE WO CONTRAST EXAM: CT lumbar spine without IV contrast CT pelvis without contrast CLINICAL HISTORY:Reason: FALL, HX LEFT HIP CYSTS / Spl. Instructions: / History: COMPARISON: None available. TECHNIQUE: Helical CT was performed through the lumbar spine. Axial, coronal and sagittal reformatted images were generated. CT of the pelvis was also performed without IV contrast. Axial, coronal and sagittal reformatted images were generated. PQRS compliance statement - One or more of the following individualized dose reduction techniques were utilized for this study: 1. Automated exposure control 2. Adjustment of the mA and/or kV according to patient size 3. Use of iterative reconstruction technique FINDINGS: Lumbar spine: Bilateral L5 pars defects are seen. No spondylolisthesis. Generalized disc bulge L5-S1. No acute fracture. Straightening of the normal lumbar lordosis. Pelvis: Expansile lytic or sclerotic left iliac wing lesion is likely grossly stable. IMPRESSION: 1. No acute fracture or subluxation of the lumbar spine 2. Bilateral L5 pars defects are seen, without spondylolisthesis. 3. No acute pelvic fracture. 4. Left iliac wing lytic and sclerotic lesion, without definite aggressive characteristics. Follow-up radiographs in 6-12 months is recommended to ensure stability. Electronically signed by: Hira Armas MD (02/25/2021 10:19 PM) [facility] DICTATED AND SIGNED BY: HIRA ARMAS MD DATE: 02/25/212213 CC: KRISTAL OWEN MD; PCP,ANTOLIN ~MTH0 0 Heart Score: C/O Chest Pain: N/A Risk Factors: Risk Factors: DM, Current or recent (<one month) smoker, HTN, HLP, family history of CAD, obesity. Risk Scores: Score 0 - 3: 2.5% MACE over next 6 weeks - Discharge Home Score 4 - 6: 20.3% MACE over next 6 weeks - Admit for Clinical Observation Score 7 - 10: 72.7% MACE over next 6 weeks - Early Invasive Strategies Course & Med Decision Making: Course & Med Decision Making Pertinent Labs and Imaging studies reviewed. (See chart for details) Patient follow-up workman comp. Consider diaz-ray in 2 weeks if no improvement. Does have a history of bone cyst., Initial fracture may not be observable. Take Tylenol or Profen for pain. Follow-up primary care. Work on follow-up essential. Impression: 1. Fall from ladder-approximately 6 foot 2. Right hip pain 3. History of bone cysts [] Dragon Disclaimer: Dragon Disclaimer: This electronic medical record was generated, in whole or in part, using a voice recognition dictation system. Departure Departure: Referrals: PCPANTOLIN (PCP) Ami Disclaimer This chart was dictated in whole or in part using Voice Recognition software in a busy, high-work load, and often noisy Emergency Department environment. It may contain unintended and wholly unrecognized errors or omissions. KRISTAL OWEN MD Feb 25, 2021 21:37
[2021-02-25] MEDS ORDERED: KETOROLAC 60 MG/2 ML VIAL. IM ONE (22:00)
--- NOTE | 2021-02-25 22:21 | RAD ---
EXAM: CT lumbar spine without IV contrast CT pelvis without contrast CLINICAL HISTORY:Reason: FALL, HX LEFT HIP CYSTS / Spl. Instructions: / History: COMPARISON: None available. TECHNIQUE: Helical CT was performed through the lumbar spine. Axial, coronal and sagittal reformatted images wer e generated. CT of the pelvis was also performed without IV contrast. Axial, coronal and sagittal reformatted imag es were generated. PQRS compliance statement - One or more of the following individualized dose reduction techniques wer e utilized for this study: 1. Automated exposure control 2. Adjustment of the mA and/or kV according to patient size 3. Use of iterative reconstruction technique FINDINGS: Lumbar spine: Bilateral L5 pars defects are seen. No spondylolisthesis. Generalized disc bulge L5-S1. No acute frac ture. Straightening of the normal lumbar lordosis. Pelvis: Expansile lytic or sclerotic left iliac wing lesion is likely grossly stable. IMPRESSION: 1. No acute fracture or subluxation of the lumbar spine 2. Bilateral L5 pars defects are seen, without spondylolisthesis. 3. No acute pelvic fracture. 4. Left iliac wing lytic and sclerotic lesion, without definite aggressive characteristics. Follow-u p radiographs in 6-12 months is recommended to ensure stability. Electronically signed by: Hira Armas MD (02/25/2021 10:19 PM) [facility]
--- NOTE | 2021-02-25 22:23 | RAD ---
EXAM: AP and lateral views right femur DATE: 02/25/2021 9:36 PM INDICATION: Reason: pain, fall / Spl. Instructions: / History: . COMPARISON: No Prior FINDINGS/ IMPRESSION: No evidence of acute fracture or dislocation. Joint spaces are preserved without significant degenera tive/proliferative change. Electronically signed by: Hira Armas MD (02/25/2021 10:21 PM) [facility]
== END 2021-02-25 23:50 | disposition home or self-care (01) ==
LOC: ER 21:27
DX: M25.551 Pain in right hip (principal); Z87.891 Personal history of nicotine dependence; W11.XXXA Fall on and from ladder, initial encounter; Y93.89 Activity, other specified; Y92.89 Other specified places as the place of occurrence of the external cause; Y99.8 Other external cause status
CPT/HCPCS: 72131; 72192; 73552; 99285-25

== ENCOUNTER 2021-08-21 02:15 | Emergency (ER) | payer BC, OTHER ==
[~2021-08-21] VITALS: Ht 180.3 cm; Wt 95.5 kg
[~2021-08-21 02:15] MED LIST changes: +TRIA15CR TP; -TRIA15CR3 TP
[2021-08-21 02:35] VITALS: BP 156/74
--- NOTE | 2021-08-21 02:36 | PHYS DOC ---
Past History Past Medical History: Renal Failure, Other Additional Past Medical Histor: kidney failure -age [age]; cyst on rt hip Past Surgical History: Other Additional Past Surgical Histo: EYE, CYST REMOVED FROM HIP Smoking: Quit Greater Than 1 Year Alcohol Use: None Drug Use: None Adult General Chief Complaint Chief Complaint: CHEST PAIN HPI HPI Patient is an otherwise healthy 21-year-old male who presents with a chief complaint of sharp, substernal chest pain, intermittent is been going on for the last couple of days. States that 6 out of 10 at its worst. Denies any known aggravating or alleviating factors. 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 States that the pain has been gone for some time now and has no other symptoms currently. Denies any recent travels, traumas, illnesses, fevers, shortness of breath, abdominal pain, nausea, vomiting, diarrhea, dysuria, hematuria or blood in the stool. Denies any numbness/weakness/tingling. States he has been eating and drinking normally for him. States he is making urine and stool normally for him. Denies any alcohol or drug use. Review of Systems Review of Systems Review of systems otherwise unremarkable except noted in HPI Allergies Allergies Allergies Coded Allergies Type Severity Reaction Last Updated Verified No Known Drug Allergies 02/21/20 No Physical Exam Physical Exam Constitutional: Well developed, well nourished, no acute distress, non-toxic appearance. [] HENT: Normocephalic, atraumatic, bilateral external ears normal, oropharynx moist, no oral exudates, nose normal. [] Eyes: conjunctiva normal, no discharge. [] Neck: Normal range of motion, no tenderness, supple, no stridor. [] Cardiovascular:Heart rate regular rhythm, no murmur [] Lungs & Thorax: Bilateral breath sounds clear to auscultation [] Abdomen: soft, no tenderness, no masses, no pulsatile masses. [] Skin: Warm, dry, no erythema, no rash. [] Back: No tenderness, no CVA tenderness. [] Extremities: No tenderness, no cyanosis, no clubbing, ROM intact, no edema. [] Neurologic: Alert and oriented X 3, normal motor function, normal sensory function, able to sit, stand and walk without issue, no focal deficits noted. [] Psychologic: Affect normal, judgement normal, mood normal. [] EKG EKG [] Radiology/Procedures Radiology/Procedures [] Heart Score C/O Chest Pain: Yes HEART Score for Chest Pain: HEART Score for Chest Pain Response (Comments) Value History Slighlty/Non-Suspicious 0 ECG Normal 0 Age < 45 0 Risk Factors No Risk Factors 0 Troponin < Normal Limit 0 Total 0 Risk Factors: Risk Factors: DM, Current or recent (<one month) smoker, HTN, HLP, family history of CAD, obesity. Risk Scores: Risk Factors: DM, Current or recent (<one month) smoker, HTN, HLP, family history of CAD, obesity. Course & Med Decision Making Course & Med Decision Making Patient is a 21-year-old male who presents with sharp chest pain Vital signs notable for hypertension. Physical exam noted above. EKG with a rate of 82, QRS of 94, QTc of 391, no STEMI. Troponin normal. Chest x-ray not concerning. Low risk Wells. PERC negative. Discussed all findings with patient. Discussed differential diagnosis of chest pain. Advised to follow-up as soon as he can with his primary care physician update on ED visit and set up a follow-up visit to discuss need for outpatient stress test. Gave strict return precautions to the ED. Patient grateful, verbalized understanding and agreed with plan of discharge. [] Dragon Disclaimer Dragon Disclaimer This electronic medical record was generated, in whole or in part, using a voice recognition dictation system. Departure Departure: Impression: Primary Impression: Chest pain Disposition: HOME / SELF CARE / HOMELESS Condition: STABLE Referrals: PCP,NO (PCP) DEBRA STEPHENS MD Patient Instructions: Chest Pain (Nonspecific) Additional Instructions: Thank you for coming into the emergency department tonight and allowing us to take care of you. Please read the attached information carefully go over things we discussed. It is very important that you follow-up with your primary care physician soon as possible to update on your ED visit and discuss need for further evaluation and treatment including a stress test and evaluation for hypertension as we discussed. Please come back to the emergency department immediately with new or concerning symptoms as we discussed. PATRICK CROCKER MD Aug 21, 2021 02:36
--- NOTE | 2021-08-21 02:50 | RAD ---
AP chest x-ray HISTORY: Chest pain. COMPARISON: Chest x-ray March 14, 2019 FINDINGS: Cardiac and mediastinal silhouette are normal. No pneumothorax, pulmonary opacities or pleu ral effusions. Bones are unremarkable. IMPRESSION: No acute process. Electronically signed by: Tom Muñoz MD (08/21/2021 2:48 AM) [facility]
--- NOTE | 2021-08-22 04:58 | EKG ---
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
== END 2021-08-21 03:29 | disposition home or self-care (01) ==
LOC: ER 02:15
DX: R07.2 Precordial pain (principal); N19 Unspecified kidney failure; Z87.891 Personal history of nicotine dependence
CPT/HCPCS: 36415; 71045; 84484; 93005; 99285

== ENCOUNTER 2021-08-25 16:28 | Emergency (ER) | payer BC ==
[~2021-08-25] VITALS: Ht 180.3 cm; Wt 95.5 kg
--- NOTE | 2021-08-25 16:59 | RAD ---
Exam Date: 08/25/2021 4:56 PM XR CHEST 1V Indication: Reason: PER PT HAVING CP, HE PASSED OUT TODAY / Spl. Instructions: / History: . Comparison: August 21, 2021 FINDINGS/ IMPRESSION: The cardiac silhouette and pulmonary vasculature are within normal limits. There is no focal consolidation, pleural effusion or pneumothorax. The visualized osseous structures are intact. Electronically signed by: Ruslan Holley MD (08/25/2021 4:57 PM) [id number]
[2021-08-25] MEDS ORDERED: MORPHINE SULFATE 4 MG/ML DISP.SYRIN. IV ONE (17:00)
[2021-08-25] MEDS ORDERED: IV NORMAL SALINE 1,000ML 1,000 ML IV ONE (17:00)
[2021-08-25] MEDS ORDERED: ONDANSETRON PF 4 MG/2 ML VIAL. IVP ONE (17:00)
[2021-08-25] MEDS ORDERED: FAMOTIDINE 20 MG/2 ML VIAL IVP ONE (17:00)
[2021-08-25 17:03] LABS: BASO % 1 % (0-3); EOS % 0 % (0-3); HEMATOCRIT 44.1 % (39.0-53.0); HEMOGLOBIN 14.9 g/dL (13.0-17.5); LYMPH % 23 % (24-48); MEAN CORPUSCULAR HEMOGLOBIN 32 pg (25-35); MEAN CORPUSCULAR HGB CONC 34 g/dL (31-37); MEAN CORPUSCULAR VOLUME 94 fL (79-100); MONO # 0.5 x10^3/uL (0.0-1.1); MONO % 6 % (0-9); NEUT # 6.1 x10^3uL (1.8-7.7); NEUT % 71 % (31-73); PLATELET COUNT 227 x10^3/uL (140-400); RED BLOOD COUNT 4.68 x10^6/uL (4.30-5.70); RED CELL DISTRIBUTION WIDTH 12.8 % (11.5-14.5); WHITE BLOOD COUNT 8.6 x10^3/uL (4.0-11.0)
--- NOTE | 2021-08-25 17:09 | PHYS DOC ---
Past History Past Medical History: Renal Failure, Other Additional Past Medical Histor: kidney failure -age 13-16; cyst on rt hip Past Surgical History: Other Additional Past Surgical Histo: EYE, CYST REMOVED FROM HIP Smoking: Quit Greater Than 1 Year Alcohol Use: Rarely Drug Use: None General Adult EDM: Chief Complaint: CHEST PAIN HPI: HPI: 21-year-old male presents with chest pain. The patient was recently seen in this emergency room by my colleague. His work-up at that time was negative. He comes back today because he woke up this morning around 8 AM with central chest pain that radiates through to his back. He also feels like he has a weird sensation in his left arm and heaviness in his legs. His chest pain is currently an 8 out of 10 and sharp stabbing in the center chest. He was dealing with the pain at home and had these 1 syncopal episode. He does not remember what happened but his relatives told him he passed out while sitting on the couch. He has had syncopal episodes in the past without diagnosis. He has never seen a neurologist. He did not have a head CT with his previous ER visit. Patient denies fever or chills. He has a cardiology appointment in 4 days. Review of Systems: Review of Systems: Constitutional: Denies fever or chills Eyes: Denies change in visual acuity HENT: Denies nasal congestion or sore throat Respiratory: Denies cough or shortness of breath Cardiovascular: Chest pain GI: Denies abdominal pain, nausea, vomiting, bloody stools or diarrhea : Denies dysuria Musculoskeletal: Thoracic back pain Integument: Denies rash Neurologic: Denies headache, focal weakness or sensory changes Endocrine: Denies polyuria or polydipsia Lymphatic: Denies swollen glands Psychiatric: Denies depression or anxiety Current Medications: Current Meds: Current Medications Medications (Trade) Dose Ordered Sig/Jean Start Time Stop Time Status Last Admin Dose Admin Famotidine (Pepcid Vial) 20 mg 1X ONCE 08/25/21 17:00 08/25/21 17:01 UNV Morphine Sulfate (Morphine 4mg Syringe) 4 mg 1X ONCE 08/25/21 17:00 08/25/21 17:01 UNV Ondansetron HCl (Zofran) 4 mg 1X ONCE 08/25/21 17:00 4/21/22 17:01 UNV Sodium Chloride 1,000 ml @ 1,000 mls/hr 1X ONCE 08/25/21 17:00 08/25/21 17:59 UNV Allergies: Allergies: Allergies Coded Allergies Type Severity Reaction Last Updated Verified No Known Drug Allergies 02/21/20 No Physical Exam: PE: Constitutional: Well developed, well nourished, no acute distress, non-toxic appearance. [] HENT: Normocephalic, atraumatic, bilateral external ears normal, oropharynx moist, no oral exudates, nose normal. [] Eyes: PERRLA, EOMI, conjunctiva normal, no discharge. [] Neck: Normal range of motion, no tenderness, supple, no stridor. [] Cardiovascular: Heart rate 80, regular rhythm, no murmur [] Lungs & Thorax: Bilateral breath sounds clear to auscultation [] Abdomen: Bowel sounds normal, soft, no tenderness, no masses, no pulsatile masses. [] Skin: Warm, dry, no erythema, no rash. [] Back: No tenderness, no CVA tenderness. [] Extremities: No tenderness, no cyanosis, no clubbing, ROM intact, no edema. [] Neurologic: Alert and oriented X 3, normal motor function, normal sensory function, no focal deficits noted. [] Psychologic: Affect normal, judgement normal, mood anxious. [] EKG: EKG: Sinus rhythm, rate 80, normal axis, no ST elevation or depression. [] Radiology/Procedures: Radiology/Procedures: [] Impressions: CT HEAD/BRAIN WO History: Reason: syncope, CP, CONFUSION / Spl. Instructions: / History: Comparison: None. Technique: Noncontrast CT imaging was performed of the head. Exposure: One or more of the following individualized dose reduction techniques were utilized for this examination: 1. Automated exposure control 2. Adjustment of the mA and/or kV according to patient size 3. Use of iterative reconstruction technique. Findings: No intracranial hemorrhage. No mass effect. No hydrocephalus. Cystic lesion along the medial left temporal lobe measures 2.2 x 2.5 cm. The lesion abuts the left hippocampus. Imaged orbits are unremarkable. Scattered paranasal sinus mucosal thickening most prominent in the right sphenoid sinus. Mastoid air cells are clear. No acute calvarial fracture. Impression: 1. No acute intracranial abnormality. 2. Cystic lesion along the left medial temporal lobe, may represent arachnoid or epidermoid cyst. MRI with and without contrast can further assess. Electronically signed by: Johnny Ardon DO (08/25/2021 5:39 PM) [facility] DICTATED AND SIGNED BY: JOHNNY ARDON DO DATE: 08/25/21 1723 CC: MARKY FIELD DO; PCP,NO ~ Exam Date: 08/25/2021 4:56 PM XR CHEST 1V Indication: Reason: PER PT HAVING CP, HE PASSED OUT TODAY / Spl. Instructions: / History: . Comparison: August 21, 2021 FINDINGS/ IMPRESSION: The cardiac silhouette and pulmonary vasculature are within normal limits. There is no focal consolidation, pleural effusion or pneumothorax. The visualized osseous structures are intact. Electronically signed by: Bennett Holley MD (08/25/2021 4:57 PM) [id number] DICTATED AND SIGNED BY: BENNETT HOLLEY MD DATE: 08/25/21 1657 CC: MARKY FIELD DO; PCP,NO ~ Heart Score: C/O Chest Pain: Yes HEART Score for Chest Pain: HEART Score for Chest Pain Response (Comments) Value History Slighlty/Non-Suspicious 0 ECG Normal 0 Age < 45 0 Risk Factors 1 or 2 Risk Factors 1 Troponin < Normal Limit 0 Total 1 Risk Factors: Risk Factors: DM, Current or recent (<one month) smoker, HTN, HLP, family history of CAD, obesity. Risk Scores: Score 0 - 3: 2.5% MACE over next 6 weeks - Discharge Home Score 4 - 6: 20.3% MACE over next 6 weeks - Admit for Clinical Observation Score 7 - 10: 72.7% MACE over next 6 weeks - Early Invasive Strategies Course & Med Decision Making: Course & Med Decision Making Pertinent Labs and Imaging studies reviewed. (See chart for details) The patient's EKG is unremarkable. As I listen to his story and previous history it makes me wonder about atypical seizure. I have added a head CT to his work-up. The patient's labs are unremarkable. His troponin is negative. Chest x-ray is negative for acute findings. The patient was given 4 mg of morphine for his pain and he got bradycardic and his blood pressure dropped. We gave 0.4 of Narcan and he recovered well still having pain control. The patient's head CT does show a 2.2 x 2.5 cm cystic lesion along the left temporal lobe. See official read for more details. The patient already has follow-up with cardiology on Sunday. I have also advised that he follow-up with his primary care physician and consider follow-up with neurology to further discuss his CT findings and further work-up. He is stable for discharge at this time. [] Dragon Disclaimer: Dragon Disclaimer: This electronic medical record was generated, in whole or in part, using a voice recognition dictation system. Departure Departure: Impression: Primary Impression: Chest pain Additional Impressions: Syncope Cyst of brain Disposition: HOME / SELF CARE / HOMELESS Condition: STABLE Referrals: PCP,NO (PCP) Additional Instructions: You should follow-up with your primary care physician and tell them about your head CT. You may or may not need further work-up and a consult with neurology. MARKY FIELD DO Aug 25, 2021 17:09
[2021-08-25 17:15] LABS: CALCIUM 9.1 mg/dL (8.5-10.1); GFR 92.6; POTASSIUM 3.6 mmol/L (3.5-5.1)
[2021-08-25 17:21] LABS: ALBUMIN/GLOBULIN RATIO 1.1 (1.0-1.7); TOTAL BILIRUBIN 0.7 mg/dL (0.2-1.0); TOTAL PROTEIN 7.5 g/dL (6.4-8.2)
[2021-08-25] MEDS ORDERED: NALOXONE 0.4 MG/ML VIAL. ONE (17:32)
[2021-08-25 17:41] VITALS: BP 146/86
--- NOTE | 2021-08-25 17:42 | RAD ---
CT HEAD/BRAIN WO History: Reason: syncope, CP, CONFUSION / Spl. Instructions: / History: Comparison: None. Technique: Noncontrast CT imaging was performed of the head. Exposure: One or more of the following individualized dose reduction techniques were utilized for thi s examination: 1. Automated exposure control 2. Adjustment of the mA and/or kV according to patient size 3. Use of iterative reconstruction technique. Findings: No intracranial hemorrhage. No mass effect. No hydrocephalus. Cystic lesion along the medial left temporal lobe measures 2.2 x 2.5 cm. The lesion abuts the left hi ppocampus. Imaged orbits are unremarkable. Scattered paranasal sinus mucosal thickening most prominent in the ri ght sphenoid sinus. Mastoid air cells are clear. No acute calvarial fracture. Impression: 1. No acute intracranial abnormality. 2. Cystic lesion along the left medial temporal lobe, may represent arachnoid or epidermoid cyst. MR I with and without contrast can further assess. Electronically signed by: Johnny Ardon DO (08/25/2021 5:39 PM) [facility]
[2021-08-25] MEDS ORDERED: NALOXONE 0.4 MG/ML VIAL. IV ONE (17:45)
--- NOTE | 2021-08-25 20:37 | EKG ---
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
== END 2021-08-25 18:14 | disposition home or self-care (01) ==
LOC: ER 16:28
DX: G93.0 Cerebral cysts (principal); R55 Syncope and collapse; R07.89 Other chest pain; M54.6 Pain in thoracic spine; N19 Unspecified kidney failure; Z87.891 Personal history of nicotine dependence
CPT/HCPCS: 36415; 70450; 71045; 80053; 84484; 85025; 93005; 96361; 96374; 96375; 99285; J2270; J2310; J2405; J3490; J7030

== ENCOUNTER 2021-08-27 22:13 | Emergency (ER) | payer BC ==
[~2021-08-27] VITALS: Ht 180.3 cm; Wt 95.5 kg
--- NOTE | 2021-08-27 22:21 | PHYS DOC ---
Past History Past Medical History: Renal Failure, Other Additional Past Medical Histor: kidney failure -age [age]; cyst on rt hip Past Surgical History: Other Additional Past Surgical Histo: EYE, CYST REMOVED FROM HIP Smoking: Quit Greater Than 1 Year Alcohol Use: Rarely Drug Use: None General Adult EDM: Chief Complaint: OTHER COMPLAINTS HPI: HPI: Dr. Fierro said I need to get checked out..,,, work then sent me in to get checked out... I was here .. keesha same thing... ".. 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 Hx. HTN and chest pain episodes. Patient does have a scheduled appointment this coming week with cardiology. Patient did not get flu vaccination. Patient did not get COVID vaccination. No recent travel. No history of trauma. Multiple inmates at the [facility] have had or now have COVID infections. Patient normally healthy. Used to smoke but no longer smokes for the past year.. Patient has a remote history of kidney failure as a kid age [age]. Had a surgical repair of his cyst on his right hip. Patient appears to be having somatic complaints over the past year. Some episodes are associated chest pain, fatigue, syncopal episodes, atypical sensations in his arms legs. Patient denies any drug use. No history of fever or chills. No history of trauma. Reviewed prior work-up in the ED on 08/25/21 . Review of Systems: Review of Systems: Constitutional: Denies fever or chills Eyes: Denies change in visual acuity HENT: Denies nasal congestion or sore throat Respiratory: Denies cough or shortness of breath Cardiovascular: Episodic chest wall pain GI: Denies abdominal pain, nausea, vomiting, bloody stools or diarrhea : Denies dysuria Musculoskeletal: Denies back pain or joint pain Integument: Denies rash Neurologic: Denies headache, focal weakness or sensory changes. Complains of generalized fatigue and weakness Endocrine: Denies polyuria or polydipsia Lymphatic: Denies swollen glands Psychiatric: Complains of confusion and anxiety Family History: Family History: Noncontributory the presentation. Current Medications: Current Meds: See nursing for home meds Allergies: Allergies: Allergies Coded Allergies Type Severity Reaction Last Updated Verified No Known Drug Allergies 02/21/20 No Physical Exam: PE: Constitutional: Well developed, well nourished, no acute distress, non-toxic appearance. [] HENT: Normocephalic, atraumatic, bilateral external ears normal, oropharynx moist, no oral exudates, nose mild nasal turbinate congestion and clear rhino rrhea Eyes: PERRLA, EOMI, conjunctiva normal, no discharge. [] Neck: Normal range of motion, no tenderness, supple, no stridor. [] Cardiovascular:Heart rate regular rhythm, no murmur [] Lungs & Thorax: Bilateral breath sounds equal at apex auscultation [] Abdomen: Bowel sounds normal, soft, no tenderness, no masses, no pulsatile masses. Scar right hip Skin: Warm, dry, no erythema, no rash. [] Back: No tenderness, no CVA tenderness. [] Extremities: No tenderness, no cyanosis, no clubbing, ROM intact, no edema. [] Neurologic: Alert and oriented X 3, moves all extremities on request, peers have distal sensory, no focal deficits noted. [DTRs +2 patella and brachial. Motor Scooter Mechanic equal. [id number]. Ambulatory without problems. Psychologic: Affect anxious,, judgement normal, mood normal. [] EKG: EKG: My interpretation EKG is sinus rhythm at 76 bpm. No acute morphology. Does have slightly prolonged LA interval of 232 ms. Time is EKG at interpretation is 2349 hrs. [] Radiology/Procedures: Radiology/Procedures: Reviewed previous x-rays [] and CT. [address] [address] IMAGING REPORT Signed PATIENT: BIANCA GOLD ACCOUNT: [id number] : 2000 LOCATION: ER AGE: 21 SEX: M EXAM STATUS: REG ER ORD. PHYSICIAN: KRISTAL OWEN MD REASON: cp PROCEDURE: PORTABLE CHEST 1V Study: XR CHEST 1V Indication: Chest pain. Comparison: 08/25/2021 Findings: The cardiomediastinal silhouette and alexia are within normal limits. No localized airspace opacity, pleural effusion or pneumothorax. Impression: No acute radiographic abnormality of the chest. No relevant change from the 08/25/2021 comparison. Electronically signed by: TEENA BURTON MD (08/28/2021 12:29 AM) [facility] DICTATED AND SIGNED BY: TEENA BURTON MD DATE: 08/28/21 0029 CC: KRISTAL OWEN MD; PCP,NO ~ Heart Score: C/O Chest Pain: N/A HEART Score for Chest Pain: HEART Score for Chest Pain Response (Comments) Value History Slighlty/Non-Suspicious 0 ECG Normal 0 Age < 45 0 Risk Factors No Risk Factors 0 Troponin < Normal Limit 0 Total 0 Risk Factors: Risk Factors: DM, Current or recent (<one month) smoker, HTN, HLP, family history of CAD, obesity. Risk Scores: Score 0 - 3: 2.5% MACE over next 6 weeks - Discharge Home Score 4 - 6: 20.3% MACE over next 6 weeks - Admit for Clinical Observation Score 7 - 10: 72.7% MACE over next 6 weeks - Early Invasive Strategies Course & Med Decision Making: Course & Med Decision Making Pertinent Labs and Imaging studies reviewed. (See chart for details) Get adequate rest. Push fluids. This may be a viral syndrome. Consider other etiologies for weakness and vacillating somatic and physical complaints.. Keep follow-up with cardiology as scheduled. Return if any concerns. Take Tylenol and ibuprofen for painful episodes. Consider early diagnosis of MS. or other autoimmune diseases. 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 Impression: 1. Confusion 2. Fatigue 3. Suspect Viral Syndrome 4. Consider other causes vacillating symptoms-such as autoimmune disorders, inflammatory disorders, multiple sclerosis, dysrhythmia etc. [] Dragon Disclaimer: Dragon Disclaimer: This electronic medical record was generated, in whole or in part, using a voice recognition dictation system. Departure Departure: Referrals: PCPANTOLIN (PCP) Ami Disclaimer This chart was dictated in whole or in part using Voice Recognition software in a busy, high-work load, and often noisy Emergency Department environment. It may contain unintended and wholly unrecognized errors or omissions. KRISTAL OWEN MD Aug 27, 2021 22:21
[2021-08-27] MEDS: IV RINGERS SOLUTION,LACTATED 1,000 ML IV SCH (23:45)
--- NOTE | 2021-08-28 00:03 | EKG ---
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
[2021-08-28 00:25] LABS: BASO # 0.1 x10^3/uL (0.0-0.2); BASO % 1 % (0-3); EOS % 0 % (0-3); HEMATOCRIT 46.1 % (39.0-53.0); HEMOGLOBIN 15.5 g/dL (13.0-17.5); LYMPH # 1.6 x10^3/uL (1.0-4.8); LYMPH % 19 % (24-48); MEAN CORPUSCULAR HEMOGLOBIN 32 pg (25-35); MEAN CORPUSCULAR HGB CONC 34 g/dL (31-37); MEAN CORPUSCULAR VOLUME 94 fL (79-100); MONO # 0.4 x10^3/uL (0.0-1.1); MONO % 5 % (0-9); NEUT # 6.5 x10^3uL (1.8-7.7); NEUT % 75 % (31-73); PLATELET COUNT 244 x10^3/uL (140-400); RED BLOOD COUNT 4.88 x10^6/uL (4.30-5.70); RED CELL DISTRIBUTION WIDTH 12.8 % (11.5-14.5); WHITE BLOOD COUNT 8.6 x10^3/uL (4.0-11.0)
--- NOTE | 2021-08-28 00:32 | RAD ---
Study: XR CHEST 1V Indication: Chest pain. Comparison: 08/25/2021 Findings: The cardiomediastinal silhouette and alexia are within normal limits. No localized airspace opacity, pl eural effusion or pneumothorax. Impression: No acute radiographic abnormality of the chest. No relevant change from the 08/25/2021 comparison. Electronically signed by: TEENA BURTON MD (08/28/2021 12:29 AM) [facility]
[2021-08-28 00:35] LABS: CALCIUM 9.6 mg/dL (8.5-10.1); GFR 92.6; POTASSIUM 4.2 mmol/L (3.5-5.1)
[2021-08-28 00:36] LABS: CLARITY,URINE CLEAR; COLOR,URINE YELLOW; GLUCOSE,URINE NEG (NEG); NITRITE,URINE NEG (NEG); UROBILINOGEN,URINE 0.2 mg/dL (0.2 mg/dL)
[2021-08-28 00:37] LABS: BACTERIA,URINE FEW /HPF (0-FEW); RBC,URINE OCC /HPF (0-2); SQUAMOUS EPITHELIAL CELL,UR OCC /LPF; WBC,URINE OCC /HPF (0-4)
[2021-08-28 00:43] LABS: INFLUENZA A PATIENT NEGATIVE (NEGATIVE); INFLUENZA B PATIENT NEGATIVE (NEGATIVE)
[2021-08-28 00:47] LABS: ALBUMIN 4.4 g/dL (3.4-5.0); DIRECT BILIRUBIN 0.1 mg/dL (0.0-0.2); MAGNESIUM 2.2 mg/dL (1.8-2.4); TOTAL BILIRUBIN 0.7 mg/dL (0.2-1.0); TOTAL PROTEIN 7.9 g/dL (6.4-8.2)
[2021-08-28 00:53] LABS: BARBITURATES NEG (NEG); BENZODIAZEPINES NEG (NEG); CANNABINOIDS NEG (NEG); COCAINE NEG (NEG); METHADONE NEG (NEG); OPIATES NEG (NEG); PHENCYCLIDINE NEG (NEG)
[2021-08-28 01:10] LABS: AMPHETAMINE/METHAMPHETAMINE NEG (NEG)
[2021-08-28 03:00] VITALS: BP 112/78
== END 2021-08-28 03:05 | disposition home or self-care (01) ==
LOC: ER 22:13
DX: R41.0 Disorientation, unspecified (principal); F41.9 Anxiety disorder, unspecified; R53.83 Other fatigue; R07.9 Chest pain, unspecified; Z87.891 Personal history of nicotine dependence
CPT/HCPCS: 36415; 71045; 80048; 80076; 80307; 81001; 82550; 83690; 83735; 83880; 84443; 84484; 85025; 85379; 85610; 85730; 87428; 93005; 99285-25